=== PATIENT | female | born 1935 | race Hispanic/Latino ===

== ENCOUNTER 2021-02-12 18:03 | Emergency (ER) | payer MEDICARE, BC ==
[2021-02-12] MEDS ORDERED: Morphine 4 MG/ML VIAL ONE (20:09)
== END 2021-02-12 19:57 | disposition home or self-care (01) ==
LOC: ERS 18:03
DX: S51.011A Laceration without foreign body of right elbow, initial encounter (principal); J44.9 Chronic obstructive pulmonary disease, unspecified; E11.9 Type 2 diabetes mellitus without complications; X58.XXXA Exposure to other specified factors, initial encounter
CPT/HCPCS: 12001; J2270